=== PATIENT | female | born 1955 | race Caucasian/White ===

== ENCOUNTER 2019-04-22 13:43 | Emergency (ER) | payer OTHER ==
[2019-04-22 15:00] LABS: Urine Blood NEGATIVE (NEG); Urine Glucose 1+ (NEG); Urine Protein NEGATIVE (NEG); Urine Specific Gravity >1.030 (1.005-1.030)
[2019-04-22 15:09] LABS: Urine Bacteria <20 /HPF (<20); Urine Culture Reflex Order NOT NEEDED; Urine RBC <5 /HPF (NONE SEEN)
[2019-04-22 15:10] LABS: Urine Mucus 2+ /HPF (NONE SEEN)
[2019-04-22 15:35] LABS: Absolute Lymphocytes (CBC) 1.9 K/uL (0.7-4.9); Basophils % 0.6 % (0-1.3); Hematocrit 43.1 % (36.0-45.0); Lymphocytes % 20.9 % (15.3-44.8); MPV 7.1 fL (7.6-11.3); RBC Red Blood Cell Count 4.41 M/uL (3.86-4.86)
--- NOTE | 2019-04-22 15:52 | RAD REPORT ---
EXAM DESCRIPTION: José Miguel Single View04/22/2019 3:42 pm CLINICAL HISTORY: sob COMPARISON: 2014 FINDINGS: The lungs appear clear of acute infiltrate. The heart is normal size IMPRESSION: No acute abnormalities displayed
[2019-04-22 16:01] LABS: Albumin 4.2 g/dL (3.4-5.0); Bilirubin Direct 0.1 mg/dL (0-0.2); Bilirubin Total 0.4 mg/dL (0.2-1.0); Magnesium 1.8 mg/dL (1.8-2.4); Potassium 3.8 mmol/L (3.5-5.1); Protein, Total 8.1 g/dL (6.4-8.2); Thyroid Stimulating Hormone 0.641 uIU/mL (0.360-3.740)
--- NOTE | 2019-04-22 16:38 | EDPHYS ---
Physician Documentation [facility] Name: Maria T Mattson Age: 63 yrs Sex: Female : 1955 Arrival Date: 04/22/2019 Time: 13:45 Bed 13 Private MD: ED Physician Wolf Becker HPI: 04/22 16:33 This 63 yrs old Female presents to ER via Ambulatory with complaints of low jr8 body temp. 16:33 The patient or guardian reports cold intolerance, diaphoresis. Onset: The jr8 symptoms/episode began/occurred gradually, 1 week(s) ago. Associated signs and symptoms: Pertinent positives: None. Current symptoms: In the emergency department the patient's symptoms have resolved. The patient has not experienced similar symptoms in the past. The patient has not recently seen a physician. Stated that she has woken up up a few times over the past week very cold and drenched. Stated that her temperature has been 95 F every morning. Also has had odd twinge in lower right abdomen without pain . Historical: - Allergies: 14:22 No Known Allergies; jl7 - PSHx: 14:22 colostomy reversal; partial removal of colon; right knee replacement; Appendectomy; jl7 - Immunization history:: Pneumococcal vaccine is not up to date, Flu vaccine is not up to date. - Coronavirus screen:: The patient has NOT traveled to [place] in the past 14 days. Proceed with normal triage process as indicated. - Social history:: Smoking status: Patient reports the use of cigarette tobacco products, smokes one-half pack cigarettes per day. - Ebola Screening: : Patient denies exposure to infectious person Patient denies travel to an Ebola-affected area in the 21 days before illness onset. ROS: 16:33 Eyes: Negative for injury, pain, redness, and discharge, ENT: Negative for injury, jr8 pain, and discharge, Neck: Negative for injury, pain, and swelling, Cardiovascular: Negative for chest pain, palpitations, and edema, Respiratory: Negative for shortness of breath, cough, wheezing, and pleuritic chest pain, Abdomen/GI: Negative for abdominal pain, nausea, vomiting, diarrhea, and constipation, Back: Negative for injury and pain, MS/Extremity: Negative for injury and deformity, Skin: Negative for injury, rash, and discoloration, Neuro: Negative for headache, weakness, numbness, tingling, and seizure. 16:33 Endocrine: Positive for cold intolerance. Exam: 16:33 Eyes: Pupils equal round and reactive to light, extra-ocular motions intact. Lids and jr8 lashes normal. Conjunctiva and sclera are non-icteric and not injected. Cornea within normal limits. Periorbital areas with no swelling, redness, or edema. ENT: Nares patent. No nasal discharge, no septal abnormalities noted. Tympanic membranes are normal and external auditory canals are clear. Oropharynx with no redness, swelling, or masses, exudates, or evidence of obstruction, uvula midline. Mucous membranes moist. Neck: Trachea midline, no thyromegaly or masses palpated, and no cervical lymphadenopathy. Supple, full range of motion without nuchal rigidity, or vertebral point tenderness. No Meningismus. Cardiovascular: Regular rate and rhythm with a normal S1 and S2. No gallops, murmurs, or rubs. Normal PMI, no JVD. No pulse deficits. Respiratory: Lungs have equal breath sounds bilaterally, clear to auscultation and percussion. No rales, rhonchi or wheezes noted. No increased work of breathing, no retractions or nasal flaring. Abdomen/GI: Soft, non-tender, with normal bowel sounds. No distension or tympany. No guarding or rebound. No evidence of tenderness throughout. Back: No spinal tenderness. No costovertebral tenderness. Full range of motion. Skin: Warm, dry with normal turgor. Normal color with no rashes, no lesions, and no evidence of cellulitis. MS/ Extremity: Pulses equal, no cyanosis. Neurovascular intact. Full, normal range of motion. Neuro: Awake and alert, GCS 15, oriented to person, place, time, and situation. Cranial nerves II-XII grossly intact. Motor strength 5/5 in all extremities. Sensory grossly intact. Cerebellar exam normal. Normal gait. Vital Signs: 14:22 Pulse 95; Resp 17; Temp 98.3(O); Pulse Ox 98% on R/A; Weight 81.65 kg; Height 5 ft. 5 jl7 in. (165.10 cm); Pain 3/10; 14:23 BP 159 / 88; jl7 15:16 BP 115 / 57; Pulse 109; Resp 19 S; Pulse Ox 98% on R/A; ca1 16:28 BP 165 / 83; Pulse 94; Resp 16 S; Pulse Ox 97% on R/A; ca1 14:22 Body Mass Index 29.95 (81.65 kg, 165.10 cm) jl7 MDM: 14:30 Patient medically screened. jr8 16:33 Differential diagnosis: hypoglycemic episode, hypothyroidism, new onset diabetes, jr8 medication reaction, cancer, anemia, infection. Data reviewed: vital signs, nurses notes, lab test result(s), and as a result, I will discharge patient. Data interpreted: Pulse oximetry: on room air is 97 %. Interpretation: normal. Counseling: I had a detailed discussion with the patient and/or guardian regarding: the historical points, exam findings, and any diagnostic results supporting the discharge/admit diagnosis, lab results, radiology results, the need for outpatient follow up, a family practitioner, to return to the emergency department if symptoms worsen or persist or if there are any questions or concerns that arise at home. ED course: No acute findings on labs or imaging at this time. Recommended f/u with PCP . 04/22 14:31 Order name: Urine Microscopic Only [facility] 04/22 14:47 Order name: Urine Dipstick--Ancillary (enter results) [facility] 04/22 15:00 Order name: Urine Dipstick-Ancillary; Complete Time: 15:03 EDAR 04/22 15:02 Order name: Basic Metabolic Panel [facility] 04/22 15:02 Order name: CBC with Diff [facility] 04/22 15:02 Order name: LFT's [facility] 04/22 15:02 Order name: Magnesium [facility] 04/22 15:02 Order name: TSH [facility] 04/22 15:02 Order name: T4 Free [facility] 04/22 15:10 Order name: Urine Microscopic Only; Complete Time: 16:00 EDAR 04/22 15:39 Order name: CBC with Automated Diff; Complete Time: 16:00 EDAR 04/22 16:02 Order name: Basic Metabolic Panel; Complete Time: 16:33 EDAR 04/22 16:02 Order name: Liver (Hepatic) Function; Complete Time: 16:33 EDAR 04/22 16:02 Order name: T4 Free; Complete Time: 16:33 EDAR 04/22 14:31 Order name: Urine Dipstick-Ancillary (obtain specimen); Complete Time: 14:44 [facility] 04/22 15:02 Order name: XRAY Chest (1 view) [facility] 04/22 15:02 Order name: EKG; Complete Time: 15:12 [facility] 04/22 15:02 Order name: Cardiac monitoring; Complete Time: 15:39 [facility] 04/22 15:02 Order name: EKG - Nurse/Tech; Complete Time: 16:22 [facility] 04/22 15:02 Order name: IV Saline Lock; Complete Time: 15:34 [facility] 04/22 15:02 Order name: Labs collected and sent; Complete Time: 15:34 [facility] 04/22 15:02 Order name: O2 Per Protocol; Complete Time: 15:38 [facility] 04/22 15:02 Order name: O2 Sat Monitoring; Complete Time: 15:38 [facility] 04/22 16:02 Order name: RAD; Complete Time: 16:33 [facility] 04/22 16:02 Order name: Magnesium; Complete Time: 16:33 EDAR 04/22 16:02 Order name: Thyroid Stimulating Hormone; Complete Time: 16:33 EDMS Administered Medications: No medications were administered Disposition: 04/22/19 16:37 Discharged to Home. Impression: Encounter for general adult medical examination without abnormal findings. - Condition is Stable. - Discharge Instructions: Health Maintenance, Female. - Medication Reconciliation Form, Thank You Letter, Antibiotic Education, Prescription Opioid Use form. - Follow up: Private Physician; When: 2 - 3 days; Reason: Recheck today's complaints, Continuance of care, Re-evaluation by your physician. - Problem is new. - Symptoms have improved. Addendum: 04/24/2019 08:05 Co-signature as Attending Physician, Wolf Becker MD I agree with the assessment and c chakraborty plan of care. Signatures: Dispatcher [employer] [facility] Wolf Becker MD MD cha Roszak, Josh, PA PA jr8 Karthik Munguia RN RN jl7 Noelle Chang RN RN ca1 Corrections: (The following items were deleted from the chart) 04/22 16:36 16:33 Stated that she has woken up up a few times over the past week very cold and jr8 drenched. Stated that her temperature has been 95 F every morning. Denies any other symptoms . jr8 16:49 16:37 04/22/2019 16:37 Discharged to Home. Impression: Encounter for general adult ca1 medical examination without abnormal findings. Condition is Stable. Forms are Medication Reconciliation Form, Thank You Letter, Antibiotic Education, Prescription Opioid Use. Follow up: Private Physician; When: 2 - 3 days; Reason: Recheck today's complaints, Continuance of care, Re-evaluation by your physician. Problem is new. Symptoms have improved. jr8
--- NOTE | 2019-04-22 16:38 | ER ---
Nurse's Notes [facility] Name: Maria T Mattson Age: 63 yrs Sex: Female : 1955 Arrival Date: 04/22/2019 Time: 13:45 Bed 13 Private MD: Diagnosis: Encounter for general adult medical examination without abnormal findings Presentation: 04/22 14:18 Presenting complaint: Patient states: "It started Sunday morning, I woke up and my jl7 body temp was 95.0 F. I got it to come up, but then Sunday it was back down. Now I've got this pain (point to RLQ) that is just achy, but I don't have an appendix. Perhaps a UTI?". Transition of care: patient was not received from another setting of care. Onset of symptoms was April 19, 2019. Risk Assessment: Do you want to hurt yourself or someone else? Patient reports no desire to harm self or others. Initial Sepsis Screen: Does the patient meet any 2 criteria? Does the patient have a suspected source of infection? No. Patient's initial sepsis screen is negative. Care prior to arrival: None. 14:18 Method Of Arrival: Ambulatory [facility] 14:18 Acuity: SHELBY 3 jl7 Historical: - Allergies: 14:22 No Known Allergies; jl7 - PSHx: 14:22 colostomy reversal; partial removal of colon; right knee replacement; Appendectomy; jl7 - Immunization history:: Pneumococcal vaccine is not up to date, Flu vaccine is not up to date. - Coronavirus screen:: The patient has NOT traveled to [place] in the past 14 days. Proceed with normal triage process as indicated. - Social history:: Smoking status: Patient reports the use of cigarette tobacco products, smokes one-half pack cigarettes per day. - Ebola Screening: : Patient denies exposure to infectious person Patient denies travel to an Ebola-affected area in the 21 days before illness onset. Screenin:37 Abuse screen: Denies threats or abuse. Denies injuries from another. Nutritional ca1 screening: No deficits noted. Tuberculosis screening: No symptoms or risk factors identified. Fall Risk Ambulatory Aid- Crutches/Cane/Walker (15 pts). Assessment: 14:37 General: Appears in no apparent distress. comfortable, Behavior is calm, cooperative, ca1 appropriate for age. Pain: Complains of pain in right inguinal area Pain currently is 4 out of 10 on a pain scale. Quality of pain is described as aching. Neuro: Level of Consciousness is awake, alert, obeys commands, Oriented to person, place, time, situation, Appropriate for age. Cardiovascular: Heart tones S1 S2 present Capillary refill < 3 seconds Patient's skin is warm and dry. Respiratory: Airway is patent Respiratory effort is even, unlabored, Respiratory pattern is regular, symmetrical, Breath sounds are clear bilaterally. GI: Abdomen is round non-distended, Bowel sounds present X 4 quads. Abd is soft and non tender X 4 quads. : No signs and/or symptoms were reported regarding the genitourinary system. EENT: No signs and/or symptoms were reported regarding the EENT system. Derm: Skin is intact, is healthy with good turgor, Skin is pink, warm \\T\\ dry. Musculoskeletal: Circulation, motion, and sensation intact. Capillary refill < 3 seconds. 15:32 Reassessment: Patient appears in no apparent distress at this time. Patient and/or ca1 family updated on plan of care and expected duration. Pain level reassessed. Patient is alert, oriented x 3, equal unlabored respirations, skin warm/dry/pink. 16:28 Reassessment: Patient appears in no apparent distress at this time. Patient and/or ca1 family updated on plan of care and expected duration. Pain level reassessed. Patient is alert, oriented x 3, equal unlabored respirations, skin warm/dry/pink. Vital Signs: 14:22 Pulse 95; Resp 17; Temp 98.3(O); Pulse Ox 98% on R/A; Weight 81.65 kg; Height 5 ft. 5 jl7 in. (165.10 cm); Pain 3/10; 14:23 BP 159 / 88; jl7 15:16 BP 115 / 57; Pulse 109; Resp 19 S; Pulse Ox 98% on R/A; ca1 16:28 BP 165 / 83; Pulse 94; Resp 16 S; Pulse Ox 97% on R/A; ca1 14:22 Body Mass Index 29.95 (81.65 kg, 165.10 cm) jl7 ED Course: 13:45 Patient arrived in ED. as 14:21 Triage completed. jl7 14:22 Arm band placed on right wrist. jl7 14:30 Fransico Zamora PA is PHCP. jr8 14:30 Wolf Becker MD is Attending Physician. jr8 14:34 Noelle Chang, RN is Primary Nurse. ca1 14:37 Patient has correct armband on for positive identification. Bed in low position. Call ca1 light in reach. Side rails up X 1. Pulse ox on. NIBP on. 14:37 No provider procedures requiring assistance completed. ca1 15:35 Initial lab(s) drawn, by me, sent to lab. Inserted saline lock: 20 gauge in right em1 antecubital area, using aseptic technique. Blood collected. 16:45 IV discontinued, intact, bleeding controlled, No redness/swelling at site. Pressure ca1 dressing applied. Administered Medications: No medications were administered Outcome: 16:37 Discharge ordered by MD. jr8 16:45 Discharged to home ambulatory. ca1 16:45 Condition: stable 16:45 Discharge instructions given to patient, Instructed on discharge instructions, follow up and referral plans. Demonstrated understanding of instructions, follow-up care. 16:49 Patient left the ED. ca1 Signatures: Lida Fan Eric em1 Fransico Zamora PA PA jr8 Karthik Munguia RN RN jl7 Noelle Chang, RN RN ca1 Corrections: (The following items were deleted from the chart) 16:46 14:37 Patient did not have IV access during this emergency room visit. ca1 ca1
--- NOTE | 2019-04-23 08:54 | EKG ---
Test Date: 2019-04-22 Test Time: 15:50:52 Traffic Recorder: RAMON MEASUREMENT RESULTS: Intervals: Rate: 83 NH: 148 QRSD: 70 QT: 372 QTc: 437 [place]: P: 77 NH: 148 QRS: 97 T: 82 INTERPRETIVE STATEMENTS: Normal sinus rhythm Rightward axis Borderline ECG No previous ECG available for comparison Electronically Signed On 04-23-19 08:52:55 FELLING MACHINE OPERATOR by Dagoberto Velásquez
[2019-04-24 08:20] VITALS: TEMP 98.3
[2019-04-24 08:24] VITALS: BP 165/83; O2SAT 97
== END 2019-04-22 16:49 | disposition home or self-care (01) ==
LOC: ER 13:43
DX: Z00.00 Encounter for general adult medical examination without abnormal findings (principal); F17.210 Nicotine dependence, cigarettes, uncomplicated
CPT/HCPCS: 36415; 71045; 80048; 80076; 81003; 81015; 83735; 84439; 84443; 85025; 93005; 99283

== ENCOUNTER 2019-04-26 04:25 | Emergency (ER) | payer OTHER ==
[2019-04-26 05:39] LABS: Absolute Lymphocytes (CBC) 2.7 K/uL (0.7-4.9); Basophils % 0.7 % (0-1.3); Hematocrit 42.4 % (36.0-45.0); Lymphocytes % 30.4 % (15.3-44.8); MPV 7.3 fL (7.6-11.3)
[2019-04-26 05:55] LABS: Potassium 3.7 mmol/L (3.5-5.1)
--- NOTE | 2019-04-26 06:03 | EDPHYS ---
Physician Documentation [facility] Name: Maria T Mattson Age: 63 yrs Sex: Female : 1955 Arrival Date: 04/26/2019 Time: 04:32 Bed 6 Private MD: ED Physician Philip Triana HPI: 04/26 05:38 This 63 yrs old Female presents to ER via EMS with complaints of temperature kdr fluctuation. 05:43 The patient was seen here a few days ago and given a thorough evaluation for vague kdr complaints. No focal medical problem was found. Since then, the patient has continued to feel that her body temperature is fluctuating and that she awakes drenched in sweat from time to time if not every night. Onset: The symptoms/episode began/occurred at an unknown time. Severity of symptoms: At their worst the symptoms were mild in the emergency department the symptoms are unchanged. The patient has experienced similar episodes in the past, multiple times, chronically. The patient has not recently seen a physician, The patient has been recently seen at the [facility] Emergency Department, last week. Historical: - Allergies: 04:50 No Known Allergies; lp1 - Home Meds: 04:50 Tylenol #4 Oral [Active]; Xanax Oral [Active]; Lasix Oral [Active]; lp1 - PMHx: 04:50 Anxiety; lp1 - PSHx: 04:50 Knee surgery; colon surgery; lp1 - Immunization history:: Adult Immunizations up to date. - Coronavirus screen:: The patient has NOT traveled to [place] in the past 14 days. The patient has NOT had contact with known/suspected case of Coronavirus?. - Social history:: Smoking status: Patient reports the use of cigarette tobacco products, smokes one-half pack cigarettes per day, Patient uses street drugs, marijuana. - Ebola Screening: : No symptoms or risks identified at this time. ROS: 05:43 Constitutional: Negative for fever, chills, and weight loss - she does feel that her kdr body temprature has been fluctuating and getting lower than normal Eyes: Negative for injury, pain, redness, and discharge, Neck: Negative for injury, pain, and swelling, Cardiovascular: Negative for chest pain, palpitations, and edema, Respiratory: Negative for shortness of breath, cough, wheezing, and pleuritic chest pain, Abdomen/GI: Negative for abdominal pain, nausea, vomiting, diarrhea, and constipation, Back: Negative for injury and pain, : Negative for injury, bleeding, discharge, and swelling, MS/Extremity: Negative for injury and deformity, Skin: Negative for injury, rash, and discoloration, Neuro: Negative for headache, weakness, numbness, tingling, and seizure activity. Psych: Negative for depression, anxiety, suicide ideation, homicidal ideation, and hallucinations, Allergy/Immunology: Negative for hives, rash, and allergies, Endocrine: Negative for neck swelling, polydipsia, polyuria, polyphagia, and marked weight changes, Hematologic/Lymphatic: Negative for swollen nodes, abnormal bleeding, and unusual bruising. Exam: 05:43 Constitutional: This is a well developed, well nourished patient who is awake, alert, kdr and in no acute distress. Head/Face: Normocephalic, atraumatic. Eyes: Pupils equal round and reactive to light, extra-ocular motions intact. Lids and lashes normal. Conjunctiva and sclera are non-icteric and not injected. Cornea within normal limits. Periorbital areas with no swelling, redness, or edema. Neck: Trachea midline, no thyromegaly or masses palpated, and no cervical lymphadenopathy. Supple, full range of motion without nuchal rigidity, or vertebral point tenderness. No Meningismus. Chest/axilla: Normal chest wall appearance and motion. Nontender with no deformity. No lesions are appreciated. Cardiovascular: Regular rate and rhythm with a normal S1 and S2. No gallops, murmurs, or rubs. Normal PMI, no JVD. No pulse deficits. Respiratory: Lungs have equal breath sounds bilaterally, clear to auscultation and percussion. No rales, rhonchi or wheezes noted. No increased work of breathing, no retractions or nasal flaring. Abdomen/GI: Soft, non-tender, with normal bowel sounds. No distension or tympany. No guarding or rebound. No evidence of tenderness throughout. Back: No spinal tenderness. No costovertebral tenderness. Full range of motion. Skin: Warm, dry with normal turgor. Normal color with no rashes, no lesions, and no evidence of cellulitis. MS/ Extremity: Pulses equal, no cyanosis. Neurovascular intact. Full, normal range of motion. Neuro: Awake and alert, GCS 15, oriented to person, place, time, and situation. Cranial nerves II-XII grossly intact. Motor strength 5/5 in all extremities. Sensory grossly intact. Cerebellar exam normal. Normal gait. Psych: Awake, alert, with orientation to person, place and time. Behavior, mood, and affect are within normal limits. Vital Signs: 04:48 BP 163 / 93; Pulse 85; Resp 18; Temp 98.1(O); Pulse Ox 98% on R/A; Weight 81.65 kg (R); lp1 Height 5 ft. 4 in. (162.56 cm); Pain 4/10; 05:36 BP 137 / 62; Pulse 79; Resp 18; Temp 97.8(O); Pulse Ox 96% on R/A; lp1 06:18 BP 138 / 72; Pulse 88; Resp 18; Temp 98.1(O); Pulse Ox 98% on R/A; lp1 04:48 Body Mass Index 30.90 (81.65 kg, 162.56 cm) lp1 MDM: 05:43 Data reviewed: vital signs, nurses notes, lab test result(s). Counseling: I had a kdr detailed discussion with the patient and/or guardian regarding: the historical points, exam findings, and any diagnostic results supporting the discharge/admit diagnosis, lab results, the need for outpatient follow up. 06:02 Patient medically screened. kdr 04/26 05:05 Order name: CBC with Diff kdr 04/26 05:05 Order name: Chem 7 kdr 04/26 05:05 Order name: Urine Dipstick-Ancillary (obtain specimen); Complete Time: 05:22 kdr 04/26 05:23 Order name: Urine Dipstick--Ancillary (enter results) ds4 04/26 05:44 Order name: CBC with Automated Diff; Complete Time: 05:52 EDMS 04/26 05:55 Order name: Basic Metabolic Panel; Complete Time: 05:57 EDMS Administered Medications: No medications were administered Disposition: 04/26/19 06:02 Discharged to Home. Impression: Encounter for general adult medical examination without abnormal findings. - Condition is Stable. - Discharge Instructions: Health Maintenance, Female. - Medication Reconciliation Form, Thank You Letter form. - Follow up: Private Physician; When: 2 - 3 days; Reason: If symptoms return, Further diagnostic work-up, Recheck today's complaints, Continuance of care, Re-evaluation by your physician. - Problem is an ongoing problem. - Symptoms have improved. Signatures: Dispatcher [employer] EDMS Philip Triana MD MD kdr Ruthie Gudino RN RN lp1 Corrections: (The following items were deleted from the chart) 06:44 06:02 04/26/2019 06:02 Discharged to Home. Impression: Encounter for general adult lp1 medical examination without abnormal findings. Condition is Stable. Forms are Medication Reconciliation Form, Thank You Letter, Antibiotic Education, Prescription Opioid Use. Follow up: Private Physician; When: 2 - 3 days; Reason: If symptoms return, Further diagnostic work-up, Recheck today's complaints, Continuance of care, Re-evaluation by your physician. Problem is an ongoing problem. Symptoms have improved. kdr
--- NOTE | 2019-04-26 06:03 | ER ---
Nurse's Notes [facility] Name: Maria T Mattson Age: 63 yrs Sex: Female : 1955 Arrival Date: 04/26/2019 Time: 04:32 Bed 6 Private MD: Diagnosis: Encounter for general adult medical examination without abnormal findings Presentation: 04/26 04:40 Presenting complaint: EMS states: Called for patient complaint of low temperature of lp1 94.5, states drinking an entire pot of hot coffee to get temperature up to 96.1; Last seen here on Sunday for same complaint; Requesting to be transferred for further testing; Per EMS, patient 97.8 oral temp. Transition of care: patient was not received from another setting of care. Onset of symptoms was April 26, 2019. Risk Assessment: Do you want to hurt yourself or someone else? Patient reports no desire to harm self or others. Initial Sepsis Screen: Does the patient meet any 2 criteria? No. Patient's initial sepsis screen is negative. Does the patient have a suspected source of infection? No. Patient's initial sepsis screen is negative. Care prior to arrival: None. 04:40 Method Of Arrival: EMS: [facility] lp1 04:40 Acuity: SHELBY 3 lp1 Historical: - Allergies: 04:50 No Known Allergies; lp1 - Home Meds: 04:50 Tylenol #4 Oral [Active]; Xanax Oral [Active]; Lasix Oral [Active]; lp1 - PMHx: 04:50 Anxiety; lp1 - PSHx: 04:50 Knee surgery; colon surgery; lp1 - Immunization history:: Adult Immunizations up to date. - Coronavirus screen:: The patient has NOT traveled to [place] in the past 14 days. The patient has NOT had contact with known/suspected case of Coronavirus?. - Social history:: Smoking status: Patient reports the use of cigarette tobacco products, smokes one-half pack cigarettes per day, Patient uses street drugs, marijuana. - Ebola Screening: : No symptoms or risks identified at this time. Screenin:40 Abuse screen: Denies threats or abuse. Denies injuries from another. Nutritional rr5 screening: No deficits noted. Tuberculosis screening: No symptoms or risk factors identified. Fall Risk Ambulatory Aid- Crutches/Cane/Walker (15 pts). Gait- Impaired (20 pts.). Total Rojas Fall Scale indicates Low Risk Score (25-44 pts). Fall prevention measures have been instituted. Side Rails Up X 2 Placed close to Nursing Station Frequent Obs/Assesments occuring As available Patient and Family Educated on Fall Prevention Program and strategies. Assessment: 04:50 General: Appears in no apparent distress. Behavior is appropriate for age. Pain: lp1 Complains of pain in lumbar area Pain currently is 4 out of 10 on a pain scale. Quality of pain is described as aching. Neuro: Level of Consciousness is awake, alert, obeys commands, Oriented to person, place, time, situation. Cardiovascular: Patient's skin is warm and dry. Respiratory: Respiratory effort is even, unlabored, Breath sounds are clear bilaterally. GI: No signs and/or symptoms were reported involving the gastrointestinal system. : No signs and/or symptoms were reported regarding the genitourinary system. EENT: No signs and/or symptoms were reported regarding the EENT system. Derm: Skin is intact, Skin is dry, Skin is normal, Reports sweating. Musculoskeletal: No deficits noted. 06:18 Reassessment: Patient appears in no apparent distress at this time. Patient is alert, lp1 oriented x 3, equal unlabored respirations, skin warm/dry/pink. Patient states, "I know my temperature will drop again, I should have came when my temperature was 94.5 instead of drinking all of that coffee to bring it up". Vital Signs: 04:48 BP 163 / 93; Pulse 85; Resp 18; Temp 98.1(O); Pulse Ox 98% on R/A; Weight 81.65 kg (R); lp1 Height 5 ft. 4 in. (162.56 cm); Pain 4/10; 05:36 BP 137 / 62; Pulse 79; Resp 18; Temp 97.8(O); Pulse Ox 96% on R/A; lp1 06:18 BP 138 / 72; Pulse 88; Resp 18; Temp 98.1(O); Pulse Ox 98% on R/A; lp1 04:48 Body Mass Index 30.90 (81.65 kg, 162.56 cm) lp1 ED Course: 04:32 Patient arrived in ED. rr5 04:35 Philip Triana MD is Attending Physician. kdr 04:36 Griffin Tirado, RN is Primary Nurse. rr5 04:47 Triage completed. lp1 04:47 Arm band placed on. lp1 04:50 Patient has correct armband on for positive identification. lp1 05:15 Initial lab(s) drawn, by me, sent to lab. lp1 05:31 Ruthie Gudino, RN is Primary Nurse. lp1 06:20 No provider procedures requiring assistance completed. Patient did not have IV access lp1 during this emergency room visit. Administered Medications: No medications were administered Outcome: 06:02 Discharge ordered by . kdr 06:20 Discharged to home ambulatory. lp1 06:20 Condition: good 06:20 Discharge instructions given to patient, Instructed on discharge instructions, follow up and referral plans. Demonstrated understanding of instructions, follow-up care. 06:30 Patient left the ED. lp1 Signatures: Philip Triana MD MD kdr Ruthie Gudino, RN RN lp1 Griffin Tirado, RN RN rr5 Corrections: (The following items were deleted from the chart) 06:44 06:44 Patient left the ED. lp1 lp1
[2019-04-26 06:53] VITALS: BP 138/72; TEMP 98.1; O2SAT 98
[2019-04-26 08:33] LABS: Urine Blood NEGATIVE (NEG); Urine Glucose TRACE (NEG); Urine Protein NEGATIVE (NEG); Urine pH 6.5 (5.0-7.0)
== END 2019-04-26 06:44 | disposition home or self-care (01) ==
LOC: ER 04:25
DX: Z00.00 Encounter for general adult medical examination without abnormal findings (principal); Z71.1 Person with feared health complaint in whom no diagnosis is made
CPT/HCPCS: 36415; 80048; 81003; 85025; 99283